=== PATIENT | female | born 1980 | race Caucasian/White ===

== ENCOUNTER 2017-09-21 14:07 | Emergency (ER) | payer MEDICAID ==
[2017-09-21] MEDS: ALBUTEROL 0.083% (NEB) 2.5 MG/3 ML AMP HHN (18:01)
[2017-09-21] MEDS: predniSONE 20 MG TAB PO (18:30)
== END 2017-09-21 18:50 | disposition home or self-care (01) ==
LOC: FTE 14:07
DX: R05 Cough (principal); R06.2 Wheezing
CPT/HCPCS: 71045; 94664; 99284-25

== ENCOUNTER 2019-03-19 12:38 | Emergency (ER) | payer OTHER, MEDICAID ==
[2019-03-19 13:20] LABS: URINE PH (Dip) POC 5.5 (5.0-8.5)
[2019-03-19 13:20] LABS: ADD MAN DIFF? NO; URINE BLOOD (Dip) POC Negative (NEGATIVE); URINE GLUCOSE (Dip) POC Negative (NEGATIVE); URINE KETONES (Dip) POC Negative (NEGATIVE); URINE LEUKOCYTE EST (Dip) POC Negative (NEGATIVE); URINE NITRITE (Dip) POC Negative (NEGATIVE); URINE TOTAL PROTEIN POC Negative (NEGATIVE)
[2019-03-19 13:24] LABS: WHITE BLOOD COUNT 8.6 10^3/ul (4.8-10.8)
[2019-03-19 13:24] LABS: BASOPHILS % 0.3 % (0.0-2.0); EOSINOPHILS % 0.3 % (0.0-7.0); HEMATOCRIT 34.1 % (37.0-47.0); LYMPHOCYTES # 2.4 10^3/ul (0.8-2.9); LYMPHOCYTES % 28.1 % (15.0-51.0); MEAN CORPUSCULAR HEMOGLOBIN 27.3 pg (29.0-33.0); MEAN CORPUSCULAR HGB CONC 32.3 g/dl (32.0-37.0); MEAN CORPUSCULAR VOLUME 84.6 fl (82.0-101.0); MEAN PLATELET VOLUME 8.9 fl (7.4-10.4); MONOCYTE # 0.5 10^3/ul (0.3-0.9); MONOCYTES % 5.6 % (0.0-11.0); NEUTROPHIL # 5.6 10^3/ul (1.6-7.5); NEUTROPHILS % 65.5 % (39.0-77.0); PLATELET COUNT 317 10^3/UL (140-415); RED BLOOD COUNT 4.03 10^6/ul (4.20-5.40)
[2019-03-19 13:40] LABS: ANION GAP 9 (5-13); BLOOD UREA NITROGEN 12 mg/dl (7-20); CALCIUM 9.3 mg/dl (8.4-10.2); CARBON DIOXIDE 26 mmol/L (21-31); CHLORIDE 106 mmol/L (97-110); CREATININE 0.63 mg/dl (0.44-1.00); Estimated GFR > 60 mL/min (>60); GLUCOSE 105 mg/dl (70-220); POTASSIUM 3.5 mmol/L (3.5-5.1); SODIUM 141 mmol/L (135-144)
[2019-03-19 13:52] LABS: TROPONIN-I < 0.012 ng/ml (0.000-0.120)
[2019-03-19] MEDS: KETOROLAC 30 MG INJ IV (14:09)
[2019-03-19 16:25] LABS: TROPONIN-I < 0.012 ng/ml (0.000-0.120)
== END 2019-03-19 16:59 | disposition home or self-care (01) ==
LOC: E/R 12:38
DX: D64.9 Anemia, unspecified (principal); E11.9 Type 2 diabetes mellitus without complications
CPT/HCPCS: 36415; 71045; 80048; 81003; 81025; 84484; 85025; 93005; 99285-25